=== PATIENT | female | born 1985 | race American Indian/Alaskan Native ===

== ENCOUNTER 2017-05-23 09:22 | Outpatient (CLI) | payer MEDICAID ==
--- NOTE | 2017-05-23 16:57 | Cat Scan Report ---
FINAL REPORT PROCEDURE: CT ABDOMEN PELVIS W CON TECHNIQUE: Computerized axial tomography of the abdomen and pelvis was performed after the IV injection of iodinated nonionic contrast. HISTORY: ABDOMINAL PAIN,VEBTRAL HERNIA COMPARISON: No prior studies are available for comparison. FINDINGS: Visualized lower thorax: Right breast prosthesis partially included in the field of view. Liver: Normal size and attenuation. Spleen: Normal size and attenuation. Gallbladder and biliary system: Normal. Pancreas: Normal. Adrenals: Normal. Kidneys: Normal. GI tract: Limited in evaluation without oral contrast. Appendix mildly prominent 7 millimeters in diameter. Subtle para appendiceal infiltrative changes distally not excluded. Lymph nodes and mesentery: Normal. Vasculature: Normal. Bladder: Normal. Reproductive organs: Bilateral ovarian cysts larger on the right.. Peritoneum: No free fluid. Musculoskeletal structures: No significant abnormality. Other: None. IMPRESSION: Question subtle uncomplicated appendicitis. Correlate clinically. Bilateral cysts of the right larger than left ovary. If desired pelvic ultrasound with Doppler may be performed for further evaluation.
== END 2017-05-23 09:23 | disposition home or self-care (01) ==
LOC: CT 09:22
PROVIDERS: ATTEND Plastic Surgery
DX: N83.201 Unspecified ovarian cyst, right side (principal); N83.202 Unspecified ovarian cyst, left side; K43.9 Ventral hernia without obstruction or gangrene; M62.08 Separation of muscle (nontraumatic), other site; Z98.82 Breast implant status
CPT/HCPCS: 74177; Q9967

== ENCOUNTER 2017-05-27 00:54 | Emergency (ER) | payer MEDICAID ==
[2017-05-27 02:22] VITALS: BP 143/92
--- NOTE | 2017-05-27 02:54 | Emergency Department Report ---
ED Medical Clearance HPI - General Chief complaint: Medical Clearance Stated complaint: ABDOMINAL PAIN Time Seen by Provider: 05/27/17 02:51 Source: patient Mode of arrival: Ambulatory - History of Present Illness Initial comments: This is a 31-year-old [place] female who is presenting to be called about a CAT scan report. Patient has a hernia and her surgeon Dr. browne ordered a CAT scan. Patient was told to come to the emergency department because of questionable finding of appendicitis. The CT scan states that there is a possible appendicolith present. There is no apparent nuchal inflammation. There is no ruptured appendix. Patient states she does not have any pain currently and has not had any pain in the abdomen on the right lower quadrant. Patient denies any nausea vomiting or anorexia at this time. Patient also denies fever. Home medications: Previous Rx's Medication Instructions Recorded Last Taken Type Amoxicillin [Trimox CAP] 500 mg PO Q8H #30 capsule 12/13/14 Unknown Rx HYDROcodone/APAP 5-325 [[place] 1 each PO Q6HR PRN #12 tablet 12/13/14 Unknown Rx 5/325] Cyclobenzaprine [Flexeril] 10 mg PO TID PRN #15 tablet 02/26/16 Unknown Rx Ibuprofen [Motrin 800 MG tab] 800 mg PO Q8HR PRN #25 tablet 02/26/16 Unknown Rx Allergies/Adverse reactions: Allergies Allergy/AdvReac Type Severity Reaction Status Date / Time tramadol Allergy Vomiting Verified 02/18/13 21:21 ED Review of Systems ROS: Stated complaint: ABDOMINAL PAIN Other details as noted in HPI Comment: All other systems reviewed and negative ED Past Medical Hx - Past Medical History Previous Medical History?: No - Surgical History Past Surgical History?: Yes Additional Surgical History: Liposuction October 22, 2013, 2016 2X - Social History Smoking Status: Never Smoker - Medications Home Medications: Home Medications Medication Instructions Recorded Confirmed Last Taken Type Amoxicillin [Trimox CAP] 500 mg PO Q8H #30 capsule 12/13/14 Unknown Rx HYDROcodone/APAP 5-325 [[place] 1 each PO Q6HR PRN #12 tablet 12/13/14 Unknown Rx 5/325] Cyclobenzaprine [Flexeril] 10 mg PO TID PRN #15 tablet 02/26/16 Unknown Rx Ibuprofen [Motrin 800 MG tab] 800 mg PO Q8HR PRN #25 tablet 02/26/16 Unknown Rx ED Physical Exam - General Limitations: No Limitations General appearance: alert, in no apparent distress - Head Head exam: Present: atraumatic, normocephalic - Eye Eye exam: Present: normal appearance - ENT ENT exam: Present: mucous membranes moist - Neck Neck exam: Present: normal inspection - Respiratory Respiratory exam: Present: normal lung sounds bilaterally. Absent: respiratory distress - Cardiovascular Cardiovascular Exam: Present: regular rate, normal rhythm. Absent: systolic murmur, diastolic murmur, rubs, gallop - GI/Abdominal GI/Abdominal exam: Present: soft, normal bowel sounds - Extremities Exam Extremities exam: Present: normal inspection - Back Exam Back exam: Present: normal inspection - Neurological Exam Neurological exam: Present: alert, oriented X3 - Psychiatric Psychiatric exam: Present: normal affect, normal mood - Skin Skin exam: Present: warm, dry, intact, normal color. Absent: rash ED Course Vital Signs 05/27/17 05/27/17 01:16 02:28 Temperature 98.1 F 98.1 F Pulse Rate 73 81 Respiratory 18 18 Rate Blood Pressure 143/92 143/92 O2 Sat by Pulse 100 100 Oximetry ED Medical Decision Making - Medical Decision Making Patient does not have any signs of appendicitis ED Disposition Clinical Impression: Normal exam Disposition: Z-07 MED SCREENING EXAM-LEFT Is pt being admited?: No Does the pt Need Aspirin: No Condition: Stable
== END 2017-05-27 02:55 | disposition left against medical advice (07) ==
LOC: ED 00:54
DX: R10.31 Right lower quadrant pain (principal); Z88.8 Allergy status to other drugs, medicaments and biological substances
CPT/HCPCS: 99281

== ENCOUNTER 2017-06-11 08:41 | Emergency (ER) | payer MEDICAID ==
[2017-06-11] MEDS ORDERED: ASPIRIN PO ONE (09:07)
[2017-06-11 09:22] LABS: Basophils % (Auto) 0.7 % (0.0-1.8); Eosinophils # (Auto) 0.1 K/mm3 (0.0-0.4); Eosinophils % (Auto) 1.5 % (0.0-4.3); Hemoglobin 13.4 gm/dl (10.1-14.3); Lymphocytes # (Auto) 1.6 K/mm3 (1.2-5.4); Lymphocytes % (Auto) 26.8 % (13.4-35.0); Mean Corpuscular HGB Conc 34 % (30-34); Mean Corpuscular Hemoglobin 29 pg (28-32); Mean Corpuscular Volume 84 fl (79-97); Monocytes # (Auto) 0.5 K/mm3 (0.0-0.8); Monocytes % (Auto) 7.9 % (0.0-7.3); Platelet Count 236 K/mm3 (140-440); Red Blood Count 4.66 M/mm3 (3.65-5.03); Red Cell Distribution Width 13.7 % (13.2-15.2)
[2017-06-11 09:38] LABS: BUN/Creatinine Ratio 15; Blood Urea Nitrogen 9 mg/dL (7-17); Calcium 8.9 mg/dL (8.4-10.2); Hemolysis Index 8
--- NOTE | 2017-06-11 09:50 | Emergency Department Report ---
ED Chest Pain HPI - General Chief Complaint: Chest Pain Stated Complaint: CHEST PAIN Time Seen by Provider: 06/11/17 09:35 Source: patient Mode of arrival: Ambulatory Limitations: No Limitations - History of Present Illness Initial Comments: 31-year-old female released from [facility] ED this morning at 0300 was diagnosed with atypical chest pain possible panic attack patient is here stating that she has persistent left-sided chest pain and palpitations, She does take PHEENTAMINE for her diet pills she is here eval persistent chest pain , recently stopped her seroquel after one mo. took one rispderidal today. also takes prozac, [facility] ed doctor states old chart not availalble at this time but states atypical cp dx and panic attack, "w/u was unremarkable this am there" -: Gradual Onset: during rest Pain Location: left chest Consistency: intermittent Improves With: nothing, antacids, remaining still Worsens With: nothing - Related Data Previous Rx's Medication Instructions Recorded Last Taken Type Amoxicillin [Trimox CAP] 500 mg PO Q8H #30 capsule 12/13/14 Unknown Rx HYDROcodone/APAP 5-325 [[place] 1 each PO Q6HR PRN #12 tablet 12/13/14 Unknown Rx 5/325] Cyclobenzaprine [Flexeril] 10 mg PO TID PRN #15 tablet 02/26/16 Unknown Rx Ibuprofen [Motrin 800 MG tab] 800 mg PO Q8HR PRN #25 tablet 02/26/16 Unknown Rx Naproxen [Naprosyn] 500 mg PO BID PRN #30 tablet 06/11/17 Unknown Rx Allergies Allergy/AdvReac Type Severity Reaction Status Date / Time tramadol Allergy Vomiting Verified 02/18/13 21:21 Heart Score - HEART Score History: Slightly suspicious EKG: Normal Age: < 45 Risk factors: No known risk factors Troponin: < normal limit HEART Score: 0 ED Review of Systems ROS: Stated complaint: CHEST PAIN Other details as noted in HPI Comment: All other systems reviewed and negative Respiratory: denies: cough, orthopnea, shortness of breath, SOB with exertion, SOB at rest, stridor, wheezing Cardiovascular: chest pain, palpitations. denies: dyspnea on exertion, orthopnea, edema, syncope, paroxysmal nocturnal dyspnea Gastrointestinal: denies: abdominal pain, nausea, vomiting, diarrhea, constipation, hematemesis, melena, hematochezia Neurological: denies: headache, weakness, numbness, paresthesias, confusion, abnormal gait, vertigo Hematological/Lymphatic: denies: easy bruising ED Past Medical Hx - Past Medical History Previous Medical History?: Yes Hx Psychiatric Treatment: Yes (depression) - Surgical History Past Surgical History?: Yes Hx Breast Surgery: Yes (augmentation) Additional Surgical History: Liposuction October 22, 2013, 2016 2X, Tummy tuck - Social History Smoking Status: Never Smoker Substance Use Type: Alcohol, Prescribed - Medications Home Medications: Home Medications Medication Instructions Recorded Confirmed Last Taken Type Amoxicillin [Trimox CAP] 500 mg PO Q8H #30 capsule 12/13/14 Unknown Rx HYDROcodone/APAP 5-325 [[place] 1 each PO Q6HR PRN #12 tablet 12/13/14 Unknown Rx 5/325] Cyclobenzaprine [Flexeril] 10 mg PO TID PRN #15 tablet 02/26/16 Unknown Rx Ibuprofen [Motrin 800 MG tab] 800 mg PO Q8HR PRN #25 tablet 02/26/16 Unknown Rx Naproxen [Naprosyn] 500 mg PO BID PRN #30 tablet 06/11/17 Unknown Rx ED Physical Exam - General Limitations: No Limitations General appearance: alert, anxious - Head Head exam: Present: atraumatic, normocephalic - Eye Eye exam: Present: normal appearance, PERRL, EOMI - ENT ENT exam: Present: normal exam, normal orophraynx - Neck Neck exam: Present: normal inspection. Absent: tenderness, meningismus - Respiratory Respiratory exam: Present: normal lung sounds bilaterally, chest wall tenderness , other (left chest wall tenderness pulses equal bilaterally). Absent: respiratory distress, wheezes, rales, rhonchi, stridor - Cardiovascular Cardiovascular Exam: Present: regular rate, normal rhythm, normal heart sounds. Absent: systolic murmur, diastolic murmur, rubs, gallop - GI/Abdominal GI/Abdominal exam: Present: soft. Absent: distended, tenderness, guarding, rebound, rigid, mass, pulsatile mass - External exam: Present: normal external exam. Absent: bleeding - Extremities Exam Extremities exam: Present: normal inspection, normal capillary refill. Absent: tenderness, pedal edema, joint swelling, calf tenderness - Neurological Exam Neurological exam: Present: alert, oriented X3, CN II-XII intact. Absent: motor sensory deficit - Skin Skin exam: Absent: cyanosis, diaphoretic, erythema, urticaria, vesicles, petechiae, pallor, abrasion, ecchymosis ED Course Vital Signs 06/11/17 06/11/17 06/11/17 09:00 09:43 09:45 Temperature 97.8 F Pulse Rate 80 Respiratory 20 Rate Blood Pressure 144/94 129/86 125/81 O2 Sat by Pulse 98 Oximetry 06/11/17 06/11/17 06/11/17 10:00 10:15 10:31 Temperature Pulse Rate 62 71 70 Respiratory 20 15 17 Rate Blood Pressure 129/76 126/77 122/76 O2 Sat by Pulse 99 96 100 Oximetry 06/11/17 06/11/17 10:45 11:00 Temperature Pulse Rate 68 67 Respiratory 20 19 Rate Blood Pressure 128/82 134/82 O2 Sat by Pulse 97 98 Oximetry ED Medical Decision Making - Lab Data Result diagrams: 06/11/17 09:11 06/11/17 09:11 - EKG Data EKG shows normal: sinus rhythm - EKG Data When compared to previous EKG there are: previous EKG unavailable 06/11/17 12:51 EKG no acute ischemic change - Medical Decision Making Symptoms are atypical EKG is within normal limits troponin was negative she does have reproducible left chest wall pain. She is perk negative. No evidence of acute emergent process and would want further workup or admission at this time. She does likely multifactorial symptoms, which is reproducible chest wall pain as well as recent DC of Seroquel with possibly some withdrawal as well as palpitations during the present time in the as well as history of anxiety she'll be stable for outpatient follow-up she'll be given instructions about chest pain she is to follow-up with regular doctor and return if new or alarming symptoms Critical care attestation.: If time is entered above; I have spent that time in minutes in the direct care of this critically ill patient, excluding procedure time. ED Disposition Clinical Impression: Atypical chest pain, Medication withdrawal Disposition: DC-01 TO HOME OR SELFCARE Is pt being admited?: No Condition: Stable Instructions: Chest Pain (ED) Additional Instructions: return if new or alarming symptoms or call 911 see her doctor in 2 days or the doctor listed Prescriptions: Naproxen [Naprosyn] 500 mg PO BID PRN #30 tablet PRN Reason: Pain
[2017-06-11 12:15] LABS: HCG Qualitative,Urine Negative (Negative)
[2017-06-11 12:16] LABS: Mucus,Urine FEW /HPF
[2017-06-11 12:17] LABS: Bilirubin,Urine NEG (Negative); Blood,Urine NEG (Negative); Color,Urine Yellow (Yellow); Protein,Urine <15 mg/dL mg/dL (Negative); Urobilinogen,Urine < 2.0 mg/dL (<2.0)
[2017-06-11 12:28] LABS: Amphetamine Screen,Urine PRESUMPTIVE NEGATIVE; Benzodiazepines Screen,Urine PRESUMPTIVE NEGATIVE; Cannabinoid Screen,Urine PRESUMPTIVE NEGATIVE; Cocaine Screen,Urine PRESUMPTIVE NEGATIVE; Methadone Screen,Urine PRESUMPTIVE NEGATIVE; Opiate Screen,Urine PRESUMPTIVE NEGATIVE
[2017-06-11 13:14] VITALS: BP 119/76
== END 2017-06-11 12:49 | disposition home or self-care (01) ==
LOC: ED 08:41
DX: R07.89 Other chest pain (principal)
CPT/HCPCS: 36415; 80048; 80307; 81001; 81025; 84484; 85025; 93005; 93010

== ENCOUNTER 2020-02-04 22:39 | Emergency (ER) | payer MEDICAID ==
[2020-02-04] MEDS ORDERED: FAMOTIDINE 20 MG/2 ML INJ IV ONE ×2 (22:51→22:53)
[2020-02-04] MEDS ORDERED: methylPREDNISolone Sod Succinate 125 MG/2 ML INJ ONE (22:51)
[2020-02-04] MEDS ORDERED: methylPREDNISolone Sod Succinate 125 MG/2 ML INJ IV ONE (22:52)
[2020-02-04] MEDS ORDERED: SODIUM CHLORIDE 0.9% 1000 ML 1,000 ML IV ONE (22:52)
[2020-02-04] MEDS ORDERED: diphenhydrAMINE 50 MG/ML VIAL IV ONE (22:52)
[2020-02-04] MEDS ORDERED: diphenhydrAMINE 50 MG/ML VIAL ONE (22:52)
--- NOTE | 2020-02-04 22:56 | Emergency Department Report ---
ED Allergic Reaction HPI - General Chief complaint: Allergic Reaction Stated complaint: ALLERGIC REACTION, ITCHING Time Seen by Provider: 02/04/20 22:48 Source: patient Mode of arrival: Ambulatory Limitations: No Limitations - History of Present Illness Initial Comments: Patient is 34 years old female with no significant past medical history. Patient presented to the ER complaining of generalized itching for the last 2 to 3 days getting worse tonight. Patient stated that her symptoms started after she ate fish 3 days ago. Patient stated that she was seen by her primary care doctor and she was given Benadryl and Decadron 6 mg tablets but is not helping. Patient denies any difficulty swallowing or difficulty breathing. MD Complaint: allergic reaction, hives -: days(s) (2) Exposure: food Symptoms: itching. denies: facial swelling, lip swelling, difficulty swallowing, difficulty breathing, orolingual swelling, hoarseness, syncopy, dizziness Treatment Prior to Arrival: benadryl, steroids Previous Allergy History: none - Related Data Previous Rx's Medication Instructions Recorded Last Taken Type Amoxicillin [Trimox CAP] 500 mg PO Q8H #30 capsule 12/13/14 Unknown Rx HYDROcodone/APAP 5-325 [[place] 1 each PO Q6HR PRN #12 tablet 12/13/14 Unknown Rx 5/325] Cyclobenzaprine [Flexeril] 10 mg PO TID PRN #15 tablet 02/26/16 Unknown Rx Ibuprofen [Motrin 800 MG tab] 800 mg PO Q8HR PRN #25 tablet 02/26/16 Unknown Rx Naproxen [Naprosyn] 500 mg PO BID PRN #30 tablet 06/11/17 Unknown Rx Allergies Allergy/AdvReac Type Severity Reaction Status Date / Time tramadol Allergy Vomiting Verified 02/18/13 21:21 ED Review of Systems ROS: Stated complaint: ALLERGIC REACTION, ITCHING Other details as noted in HPI Comment: All other systems reviewed and negative Constitutional: denies: chills Respiratory: denies: cough, shortness of breath, SOB with exertion Cardiovascular: denies: chest pain, palpitations Gastrointestinal: denies: abdominal pain, nausea Skin: rash, pruritus ED Past Medical Hx - Past Medical History Hx Psychiatric Treatment: Yes (depression) - Surgical History Hx Breast Surgery: Yes (augmentation) Additional Surgical History: Liposuction October 22, 2013, 2016 2X, Tummy tuck - Social History Smoking Status: Never Smoker Substance Use Type: None - Medications Home Medications: Home Medications Medication Instructions Recorded Confirmed Last Taken Type Amoxicillin [Trimox CAP] 500 mg PO Q8H #30 capsule 12/13/14 Unknown Rx HYDROcodone/APAP 5-325 [[place] 1 each PO Q6HR PRN #12 tablet 12/13/14 Unknown Rx 5/325] Cyclobenzaprine [Flexeril] 10 mg PO TID PRN #15 tablet 02/26/16 Unknown Rx Ibuprofen [Motrin 800 MG tab] 800 mg PO Q8HR PRN #25 tablet 02/26/16 Unknown Rx Naproxen [Naprosyn] 500 mg PO BID PRN #30 tablet 06/11/17 Unknown Rx ED Physical Exam - General Limitations: No Limitations General appearance: alert, in no apparent distress, anxious - Head Head exam: Present: atraumatic, normocephalic, normal inspection - Eye Eye exam: Present: normal appearance, PERRL - ENT ENT exam: Present: normal exam, normal orophraynx, mucous membranes moist - Neck Neck exam: Present: normal inspection. Absent: tenderness, meningismus - Respiratory Respiratory exam: Present: normal lung sounds bilaterally. Absent: respiratory distress, wheezes, rales, rhonchi, stridor, accessory muscle use, decreased breath sounds, prolonged expiratory - Cardiovascular Cardiovascular Exam: Present: regular rate, normal rhythm, normal heart sounds - GI/Abdominal GI/Abdominal exam: Present: soft, normal bowel sounds. Absent: distended, tenderness, guarding, rebound, rigid, organomegaly, mass, bruit, pulsatile mass, hernia - Extremities Exam Extremities exam: Present: normal inspection, full ROM, normal capillary refill. Absent: tenderness, pedal edema, joint swelling, calf tenderness - Neurological Exam Neurological exam: Present: alert, oriented X3, CN II-XII intact, normal gait. Absent: motor sensory deficit - Psychiatric Psychiatric exam: Present: anxious - Skin Skin exam: Present: rash, urticaria ED Course Vital Signs 02/04/20 02/04/20 02/04/20 22:44 22:51 23:06 Temperature 98.4 F Pulse Rate 104 H Blood Pressure 162/90 O2 Sat by Pulse 99 97 Oximetry 02/04/20 02/04/20 02/04/20 23:15 23:30 23:45 Temperature Pulse Rate Blood Pressure 135/65 112/61 112/61 O2 Sat by Pulse 98 95 98 Oximetry ED Medical Decision Making - Medical Decision Making Patient is 34 years old female with no significant past medical history. Patient presented to the ER complaining of generalized itching for the last 2 to 3 days getting worse tonight. Patient stated that her symptoms started after she ate fish 3 days ago. Patient stated that she was seen by her primary care doctor and she was given Benadryl and Decadron 6 mg tablets but is not helping. Patient denies any difficulty swallowing or difficulty breathing. Patient received Solu-Medrol, Benadryl and Pepcid. Patient stated that she is feeling much better. No more itching. Patient still denying any difficulty breathing or difficulty swallowing. Patient given prescription for prednisone, Benadryl and Pepcid and advised to follow-up with her primary doctor in the next 2 to 3 days and to return to the ER if she develop any new symptoms. Critical care attestation.: If time is entered above; I have spent that time in minutes in the direct care of this critically ill patient, excluding procedure time. ED Disposition Clinical Impression: Allergic reaction Disposition: DC-01 TO HOME OR SELFCARE Is pt being admited?: No Condition: Stable Instructions: Allergies, Adult, [id number] Referrals: MAYELA STOVER MD [Primary Care Provider] - 3-5 Days
[2020-02-05 01:54] VITALS: BP 132/78
== END 2020-02-05 01:49 | disposition home or self-care (01) ==
LOC: ED 22:39
DX: T78.40XA Allergy, unspecified, initial encounter (principal); L29.9 Pruritus, unspecified; F32.9 Major depressive disorder, single episode, unspecified; Z98.890 Other specified postprocedural states; Z79.899 Other long term (current) drug therapy; Z79.1 Long term (current) use of non-steroidal anti-inflammatories (NSAID); Z79.2 Long term (current) use of antibiotics; Z88.8 Allergy status to other drugs, medicaments and biological substances; X58.XXXA Exposure to other specified factors, initial encounter
CPT/HCPCS: 96361; 96374; 96375; 99282; J1200; J2930